=== PATIENT | male | born 1955 ===

== ENCOUNTER 2017-12-27 16:12 | Observation (INO) ==
[2017-12-27] MEDS: SODIUM CHLORIDE 0.9% 250 ML IV SCH (16:30)
[2017-12-27 16:43] LABS: Basophils % 0.3 % (0.0-0.8); Eosinophils # 0.1 10*3/uL (0.0-0.87); Eosinophils % 2.3 % (0.00-10.9); Hematocrit 22.8 VOL% (42.0-52.0); Hemoglobin 7.5 GM/DL (14.0-18.0); Immature Granulocytes % 0.5 %; Immature Granulocytes Absolute 0.02 #; Lymphocytes # 0.6 10*3/uL (1.4-4.0); Mean Corpuscular HGB Conc 32.9 GM/DL (32-36); Mean Corpuscular Hemoglobin 34 PG (27-34); Mean Corpuscular Volume 104.1 FL (87-102); Mean Platelet Volume 8.9 FL (9.6-12.0); Monocytes # 0.4 10*3/uL (0.11-0.8); Monocytes % 10.2 % (1.7-12.7); Neutrophils # 2.9 10*3/uL (1.4-7.4); Neutrophils % 72.7 % (38.7-73.9); Platelet Count 151 T/CUMM (130-400); Red Blood Count 2.19 MC/CUMM (3.8-5.5); Red Cell Distribution Width 15.9 % (9.3-17.3); White Blood Count 3.9 T/CUMM (4-12)
[2017-12-27] MEDS ORDERED: HEPARIN 5,000 UNIT/1 ML VIAL ONE (16:43)
[2017-12-27] MEDS ORDERED: BUPIVACAINE MPF 0.25% /EPI 30 ML VIAL ONE (16:43)
[2017-12-27] MEDS ORDERED: ceFAZolin 1,000 MG VIAL ONE (16:51)
[2017-12-27 17:01] LABS: Calcium 9.1 MG/DL (8.5-10.1); Osmolality,Calculated 295.5 MOS/KG (273-304)
[2017-12-27 17:04] LABS: Potassium 6.3 MMOL/L (3.5-5.1)
[2017-12-27 17:17] LABS: INR 1.1; PT Patient Result 11.4 SECS; Partial Thromboplastin Time 34.5 SECS (0-40)
[2017-12-27] MEDS ORDERED: GLUCAGON 1 MG VIAL IM PRN (17:38)
[2017-12-27] MEDS ORDERED: DEXTROSE 50% 25 GM/50 ML VIAL IV PRN (17:38)
[2017-12-27] MEDS ORDERED: MORPHINE 4 MG/1 ML VIAL IV PRN (17:38)
[2017-12-27] MEDS ORDERED: ONDANSETRON 4 MG/2 ML VIAL IV PRN (17:38)
[2017-12-27] MEDS ORDERED: PROPOFOL 200 MG/20 ML VIAL IV ONE (17:50)
[2017-12-27] MEDS ORDERED: MIDAZOLAM 2 MG/2 ML VIAL ONE (17:51)
[2017-12-27] MEDS ORDERED: fentaNYL 100 MCG/2 ML VIAL ONE (17:51)
[2017-12-27] MEDS ORDERED: MORPHINE 10 MG/1 ML VIAL IV PRN (18:30)
[2017-12-27 21:22] LABS: Hepatitis A Ab IgM Result Negative (Negative); Hepatitis B Core IgM Result Negative (Negative); Hepatitis B Surface Ag Quant 0.66 Index; Hepatitis B Surface Ag Result Negative (Negative); Hepatitis C Virus Ab Quant 0.13 Index; Hepatitis C Virus Ab Result Negative (Negative)
[2017-12-28] MEDS: SODIUM CHLORIDE 0.9% 250 ML IV SCH ×2 (04:21→19:04)
[2017-12-28 08:44] LABS: Calcium 9.1 MG/DL (8.5-10.1); Osmolality,Calculated 285.2 MOS/KG (273-304); Potassium 5.1 MMOL/L (3.5-5.1)
[2017-12-29 05:32] LABS: Basophils % 0.3 % (0.0-0.8); Eosinophils # 0.1 10*3/uL (0.0-0.87); Eosinophils % 2.6 % (0.00-10.9); Hematocrit 21.6 VOL% (42.0-52.0); Hemoglobin 7.5 GM/DL (14.0-18.0); Immature Granulocytes % 0.3 %; Immature Granulocytes Absolute 0.01 #; Lymphocytes # 0.6 10*3/uL (1.4-4.0); Lymphocytes % 14.1 % (21.2-54.2); Mean Corpuscular HGB Conc 34.7 GM/DL (32-36); Mean Corpuscular Hemoglobin 35 PG (27-34); Mean Corpuscular Volume 100.9 FL (87-102); Monocytes # 0.5 10*3/uL (0.11-0.8); Monocytes % 13.1 % (1.7-12.7); Neutrophils # 2.7 10*3/uL (1.4-7.4); Neutrophils % 69.6 % (38.7-73.9); Platelet Count 167 T/CUMM (130-400); Red Blood Count 2.14 MC/CUMM (3.8-5.5); Red Cell Distribution Width 15.7 % (9.3-17.3); White Blood Count 3.9 T/CUMM (4-12)
[2017-12-29] MEDS ORDERED: SODIUM CHLORIDE 0.9% 1,000 ML IV PRN (09:41)
[2017-12-30 09:05] LABS: Hematocrit 31.6 VOL% (42.0-52.0); Hemoglobin 10.6 GM/DL (14.0-18.0)
[2017-12-30 10:49] VITALS: BP 167/87
== END 2017-12-30 14:35 ==
LOC: N.OR 16:12 → INTOOBSV 21:19 → N.3E 21:19
PROVIDERS: ADMIT Surgery; ATTEND Surgery